=== PATIENT | female | born 1950 | race Caucasian/White ===

== ENCOUNTER 2024-05-30 10:30 | Day surgery (SDC) | payer BC, OTHER ==
[2024-05-20 14:52] LABS: BASOPHILS % (AUTO) 0.6 % (0-1); EOSINOPHILS # (AUTO) 0.1 X10'3 (0-0.9); EOSINOPHILS % (AUTO) 1.2 % (0-6); LYMPHOCYTES # (AUTO) 1.6 X10'3 (1.1-4.8); LYMPHOCYTES % (AUTO) 23.3 % (21-51); MEAN CORPUSCULAR HEMOGLOBIN 31.2 PG (27.0-31.0); MEAN CORPUSCULAR HGB CONC 33.3 g/dL (33.0-36.5); MEAN CORPUSCULAR VOLUME 93.8 FL (78-98); MEAN PLATELET VOLUME 8.4 FL (7.4-10.4); MONOCYTES # (AUTO) 0.4 X10'3 (0-0.9); MONOCYTES % (AUTO) 5.3 % (2-12); NEUTROPHILS # (AUTO) 4.9 X10'3 (1.8-7.7); NEUTROPHILS % (AUTO) 69.6 % (42-75); PRE OP HEMOGLOBIN 13.3 g/dL (12.0-16.0); PRE OP PLATELET COUNT 285 X10'3 (140-440); PRE OP WHITE BLOOD COUNT 7.1 10'3 (4.8-10.8); RED BLOOD COUNT 4.26 X10'6 (4.20-5.60)
[2024-05-20 14:58] LABS: BILIRUBIN,URINE NEGATIVE (Neg); CLARITY,URINE CLEAR (Clear); COLOR,URINE YELLOW (Yellow); GLUCOSE, URINE NEGATIVE (Neg); KETONES,URINE NEGATIVE (Neg); LEUKOCYTE ESTERASE ,URINE NEGATIVE (Neg); NITRITES, URINE NEGATIVE (Neg); OCCULT BLOOD,URINE NEGATIVE (Neg); PH,URINE 6.5 (4.8-8.0); PROTEIN,URINE NEGATIVE (Neg); UROBILINOGEN,URINE 0.2 E.U/dL (0.2-1.0)
[2024-05-20 15:06] LABS: UA COLLECTION TYPE CLN CATCH MIDSTREAM
[2024-05-20 15:17] LABS: ALBUMIN 4.2 G/DL (3.4-5.0); ALBUMIN/GLOBULIN RATIO 1.3 (1.1-1.5); ALKALINE PHOSPHATASE 58 IU/L (46-116); BLOOD UREA NITROGEN 19 MG/DL (7-18); BUN/CREATININE RATIO 25.7 (10.0-20.0); CALCIUM 9.2 MG/DL (8.5-10.1); CHLORIDE 105 MMOL/L (99-107); CREATININE 0.74 MG/DL (0.40-0.90); PRE OP ALT 29 U/L (30-65); PRE OP ANION GAP 7 (8-16); PRE OP AST 24 U/L (10-37); PRE OP BILIRUB, TOTAL 0.3 MG/DL (0.0-1.0); PRE OP GLUCOSE 115 MG/DL (70-104); PRE OP POTASSIUM 4.2 MMOL/L (3.4-5.1); PRE OP SODIUM 140 MMOL/L (135-145); TOTAL PROTEIN 7.5 G/DL (6.4-8.2); eGFR 77 ML/MIN
[~2024-05-30] VITALS: Ht 160 cm; Wt 54.8 kg
[2024-05-30] VITALS (7 sets, daily range): BP systolic 113–140; BP diastolic 56–74; PULSE 63–95; RESP 11–16; TEMP 98.1; O2SAT 94–100
[2024-05-30] MEDS: cefazolin 2gm/D5W 100mL 100 ML IV ONE (05:30)
[~2024-05-30 10:30] MED LIST: AMLO10TA13 PO; ASPI-1071 PO; CALCIUM PO; COLE625T13 PO; CYCL1DRO2 EACHEYE; LYSI500T40 PO; MACUHEALTH PO; MV-M1TAB2 PEG; TIZA4CAP PO; VALA100031 PO; [UNRECOGNIZED DRUG - OTHER] IV
[2024-05-30] MEDS ORDERED: bacitracin 15gm ointment TP ONE (12:20)
[2024-05-30] MEDS: famotidine 20mg tablet PO ONE (12:28)
[2024-05-30] MEDS: ringers solution, lacted 1,000 ML IV SCH (12:28)
[2024-05-30] MEDS ORDERED: sevoflurane 250ml liquid IH ONE (12:37)
[2024-05-30] MEDS ORDERED: ondansetron/PF 4mg/2ml inj IV PRN (12:40)
[2024-05-30] MEDS ORDERED: hydrALAZINE 20mg/ml inj. IV PRN (12:40)
[2024-05-30] MEDS ORDERED: labetalol 20mg/4ml (5mg/ml) syringe IV PRN (12:40)
[2024-05-30] MEDS ORDERED: fentaNYL/PF 50MCG/1 ML 2ML syringe IV PRN ×2 (12:40)
[2024-05-30] MEDS ORDERED: morphine 4 MG/ML inj SYRINge IV PRN (12:40)
[2024-05-30] MEDS ORDERED: morphine 2 MG/ML inj. syringe IV PRN (12:40)
[2024-05-30] MEDS ORDERED: ringers solution, lacted 1,000 ML IV SCH (12:40)
[2024-05-30] MEDS ORDERED: propofol inj 20 ML IV ONE (12:52)
[2024-05-30] MEDS ORDERED: ondansetron/PF 4mg/2ml inj ONE (12:52)
[2024-05-30] MEDS ORDERED: LIDOcaine 2% (20mg/ml) 5ml vial ONE (12:52)
[2024-05-30] MEDS ORDERED: meperidine/PF 50mg/ml syringe ONE (12:53)
[2024-05-30] MEDS ORDERED: acetaminophen 1,000mg/100ml IV 100 ML IV ONE (12:53)
[2024-05-30] MEDS ORDERED: ketorolac trometh 30MG/ML vial 30 MG/ML VIAL ONE (13:13)
[2024-05-30] MEDS: BUPIVAcaine/PF 2.5mg/ml (0.25%) 10ml vial IJ ONE (13:16)
[2024-05-30] MEDS: bacitracin 15gm ointment TP ONE (13:27)
== END 2024-05-30 14:45 | disposition home or self-care (01) ==
LOC: PAS 10:30
PROVIDERS: ATTEND Podiatrist Foot & Ankle Surgery
DX: G57.82 Other specified mononeuropathies of left lower limb (principal); G57.62 Lesion of plantar nerve, left lower limb; I10 Essential (primary) hypertension; M19.90 Unspecified osteoarthritis, unspecified site; Z85.828 Personal history of other malignant neoplasm of skin; Z79.82 Long term (current) use of aspirin; Z79.891 Long term (current) use of opiate analgesic; Z79.899 Other long term (current) drug therapy; Z98.891 History of uterine scar from previous surgery; Z98.890 Other specified postprocedural states; Z91.040 Latex allergy status
CPT/HCPCS: 28080; 36415; 80053; 81003; 82948; 85025; A6223; J0131; J0690; J1100; J1885; J2175; J2405; J2704; J3490; J7030; J7120; Z7506; Z7508; Z7512; 88304; A4215; A4618; A6449; A7000